=== PATIENT | female | born 1955 | race Hispanic/Latino ===

== ENCOUNTER 2021-04-30 07:26 | Outpatient (CLI) | payer BC ==
--- NOTE | 2021-04-30 08:57 | Cat Scan Report ---
CT ABDOMEN AND PELVIS WITHOUT CONTRAST INDICATION / CLINICAL INFORMATION: CARCINOMA IN SITU OF BLADDER. TECHNIQUE: Axial CT images were obtained through the abdomen and pelvis without IV contrast. Sagittal and rice l reformatted images. All CT scans at this location are performed using CT dose reduction for ALARA b y means of automated exposure control. COMPARISON: None available. FINDINGS: LOWER CHEST: No significant abnormality. LIVER: There is moderate diffuse fatty infiltration throughout the liver. No discrete mass. GALLBLADDER: No significant abnormality. BILE DUCTS: No significant abnormality. PANCREAS: No significant abnormality. SPLEEN: No significant abnormality. ADRENALS: No significant abnormality. RIGHT KIDNEY and URETER: 1 cm cortical cyst near mid pole. The right kidney and collecting system are unremarkable otherwise. LEFT KIDNEY and URETER: No significant abnormality. STOMACH and SMALL BOWEL: No significant abnormality. COLON: No significant abnormality. APPENDIX: No significant abnormality. PERITONEUM: No free fluid. No free air. No fluid collection. LYMPH NODES: No significant adenopathy. AORTA and ARTERIES: No significant abnormality. IVC and VEINS: No significant abnormality. URINARY BLADDER: The bladder is partially distended. There is no evidence for focal bladder wall thic [place] or bladder mass. REPRODUCTIVE ORGANS: A 7.8 x 5.8 x 5.3 cm predominantly cystic septated masslike lesion is identified in the left adnexa. Punctate calcifications are identified. Left ovarian neoplasm cannot be excluded . Further evaluation with pelvic ultrasound or MRI pelvis with and without contrast is recommended. A 2.2 cm simple right ovarian cyst is identified. The uterus is unremarkable. ADDITIONAL FINDINGS: None. SKELETAL SYSTEM: Mild lumbar spondylosis. No suspicious bony lesion is detected. IMPRESSION: Unremarkable noncontrast CT appearance of the bladder. Large complex cystic mass in the left adnexa as described. Ovarian neoplasm cannot be excluded. Furth er evaluation is recommended. 2.2 cm right ovarian cyst. Hepatic steatosis. Signer Name: Kodak Hitchcock Jr, MD Signed: 04/30/2021 8:52 AM Workstation Name: [id number]
== END 2021-04-30 07:27 | disposition home or self-care (01) ==
LOC: CT 07:26
PROVIDERS: ATTEND Urology
DX: K76.0 Fatty (change of) liver, not elsewhere classified (principal); D09.0 Carcinoma in situ of bladder; N28.1 Cyst of kidney, acquired; N83.201 Unspecified ovarian cyst, right side; M47.816 Spondylosis without myelopathy or radiculopathy, lumbar region
CPT/HCPCS: 74176